=== PATIENT | male | born 1945 | race Caucasian/White ===

== ENCOUNTER 2017-09-25 07:50 | Day surgery (SDC) ==
[2017-09-25] MEDS ORDERED: DIPRIVAN 20 ML VIAL IVP ONE (10:30)
[2017-09-25] MEDS ORDERED: LIDOCAINE HCL 2% LUER-JET ONE (10:30)
[2017-09-25 11:43] VITALS: BP 154/68; TEMP 97.3
--- NOTE | 2017-09-26 11:25 | OP ---
INDICATIONS FOR PROCEDURE: 71-year-old gentleman presents for colonoscopy. He has a history of adenomatous polyps with his last colonoscopy in 2010. MEDICATIONS: SEE ANESTHESIA NOTES. PROCEDURE: COLONOSCOPY. REPORT: The risks, benefits, alternatives and limitations were discussed in detail with the patient. Informed consent was obtained. After adequate sedation was achieved, a digital rectal exam revealed good tone, no masses. The colonoscope was introduced into the rectum and advanced under direct visual guidance to the cecum. The cecum was identified by the appendiceal orifice and IC valve. I then slowly withdrew the scope in a circumferential manner examining the mucosa quite carefully. I looked on the proximal and distal side of folds and flexures as best as possible. I was able to retroflex the scope in the right colon and left colon to increase visualization. The colonic mucosa was unremarkable except for several small mouth diverticula throughout scattered throughout the sigmoid. On retroflex view of the anal canal there were small internal hemorrhoids. The prep was good. The withdrawal time was 9 minutes and 0 seconds. The patient tolerated the procedure well with stable vital signs and pulse oximetry throughout. IMPRESSION: 1. Sigmoid diverticulosis 2. Small internal hemorrhoids RECOMMENDATIONS: 1. High fiber diet. 2. Office visit as needed. 3. Repeat colonoscopy examination again in 5 years, sooner if there are any signs or symptoms to indicate otherwise. CC: DR. STELLA WOMACK
== END 2017-09-25 11:48 | disposition home or self-care (01) ==
LOC: SURG 07:50
PROVIDERS: ATTEND Internal Medicine Gastroenterology
DX: Z09 Encounter for follow-up examination after completed treatment for conditions other than malignant neoplasm (principal); Z86.010 Personal history of colon polyps; K57.30 Diverticulosis of large intestine without perforation or abscess without bleeding; K64.8 Other hemorrhoids